=== PATIENT | female | born 1975 | race Caucasian/White ===

== ENCOUNTER 2020-01-21 15:45 | Emergency (ER) | payer SELFPAY ==
[~2020-01-21] VITALS: Ht 172.2 cm; Wt 95.2 kg
[~2020-01-21 15:45] MED LIST: ALBUTEROL; ALPR1T PO; BENZ100C18 PO; CEFP250S5 PO; CEPH500C PO; CLIN-62 PO; FLUC40SU PO; GLIP10TA13 PO; GLMP4T PO; HYDR118S PO; IBP800T PO; LEVO500T69 PO; MECL-124 PO; METF-380 PO; NFMET1000; OMEP20CA12 PO; PHEN-452 PO; PRD20T PO; PREN1TAB39 PO; PS30T PO; RNT150T; SRTR100T PO; TPR25T PO; TRIA16.5 NS
[2020-01-21] MEDS ORDERED: KETOROLAC 30 MG/ML VIAL IVP STA (16:48)
[2020-01-21] MEDS ORDERED: NS IV 1000 ML 1,000 ML IV SCH (16:48)
--- NOTE | 2020-01-21 16:59 | ED EENT ---
History of Present Illness General Stated Complaint: MIGRAINE History of Present Illness Date Seen by Provider: Jan 21, 2020 Time Seen by Provider: 16:35 Initial Comments 44 year old female presents for right frontal headache. Patient states that it's been present for approximately 48 hours. 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 She reports that her study partner did test positive for COVID approximately 2 weeks ago and is off isolation at this time. She reports a slight change in her sense of taste and smell but nothing significant. She has long-standing history of migraines. She has not required any injections for medications for this in the last few years. She did try Tylenol and naproxen with no improvement in her symptoms. She did vomit one time prior to arrival. She is under stress from school and her child committed suicide within the last year. Timing/Duration: abrupt, yesterday Severity: moderate Location: ear (R), ear (L), facial Prearrival Treatment: over the counter meds Associated Symptoms: No change in hearing, No cough, No fever; malaise, nasal congestion/drainage, poor solids intake, sinus infection, sore throat Allergies and Home Medications Allergies Coded Allergies: Penicillins (Verified Adverse Reaction, Mild, YEAST INFECTION, 08/09/11) PATIENT STATED THEY HAD A YEAST INFECTION AFTER USING PCN Home Medications Alprazolam 1 Mg Tablet, 1 TAB PO BID PRN, (Reported) Cefdinir 300 Mg Capsule, 300 MG PO BID Prescribed by: DEYANIRA CACERES on 01/21/201815 Omeprazole 20 Mg Capsule.dr, 20 MG PO DAILY, (Reported) Sertraline Hcl 100 Mg Tablet, 200 MG PO HS, (Reported) Patient Home Medication List Home Medication List Reviewed: Yes Review of Systems Review of Systems Constitutional: no symptoms reported, see HPI; No fever Eyes: See HPI, Photophobia; Denies Vision Changes Ears: See HPI, Pain Nose: see HPI, congestion Mouth: no symptoms reported, see HPI Throat: no symptoms reported, see HPI Respiratory: see HPI, cough; No dyspnea on exertion, No short of breath Cardiovascular: no symptoms reported, see HPI; No chest pain Gastrointestinal: see HPI, nausea, vomiting : No (hysterectomy) Musculoskeletal: no symptoms reported, see HPI All Other Systems Reviewed Negative Unless Noted: Yes Past Nodjcun-Chcngt-Amrroz Hx Past Med/Social Hx: Reviewed Nursing Past Med/Soc Hx Patient Social History Recent Foreign Travel: No Contact w/Someone Who Travel: No Immunizations Up To Date Date of Influenza Vaccine: Dec 03, 2010 Seasonal Allergies Seasonal Allergies: Yes Past Medical History Asthma, Pneumonia SALES PROMOTER History: Tubal Ligation Gastroesophageal Reflux Dysphagia, Chronic Ear Infection Loss of Vision: Denies Hearing Impairment: Denies Anxiety, Depression Physical Exam Vital Signs Vital Signs - First Documented 01/21/20 16:24 Temp 35.6 Pulse 52 Resp 15 B/P (MAP) 153/91 (111) Pulse Ox 98 O2 Delivery Room Air Height, Weight, BMI Height: '" Weight: lbs. oz. kg; BMI Method:Stated General Appearance: WD/WN, mild distress Eyes: bilateral eye normal inspection, bilateral eye PERRL, bilateral eye EOMI Ears: bilateral ear erythema, bilateral ear TM red, bilateral ear TM bulging Nose: normal inspection; No active bleeding, No discharge Mouth/Throat: normal mouth inspection, pharynx normal Neck: non-tender, full range of motion, supple, normal inspection Cardiovascular: normal peripheral pulses, regular rate, rhythm Respiratory: chest non-tender, lungs clear, normal breath sounds Gastrointestinal: normal bowel sounds, non tender, soft Neurologic/Psychiatric: no motor/sensory deficits, alert, normal mood/affect, oriented x 3 Skin: normal color, warm/dry; No rash Progress/Results/Core Measures Results/Orders Lab Results Laboratory Tests Test 01/21/20 16:40 Range/Units Coronavirus 2019 ([facility]) Negative Negative My Orders Orders - DEYANIRA CACERES Covid 19 Inhouse Test (01/21/20 16:29) Ed Iv/Invasive Line Start (01/21/20 16:48) Ns Iv 1000 Ml (Sodium Chloride 0.9%) (01/21/20 16:48) Ketorolac Injection (Toradol Injection) (01/21/20 16:48) Diphenhydramine Injection (Benadryl Inje (01/21/20 17:00) Promethazine Injection (Phenergan Injec (01/21/20 17:00) Tramadol Tablet (Ultram Tablet) (01/21/20 18:15) Medications Given in ED Current Medications Medications Dose Ordered Sig/Augie Route Start Time Stop Time Status Last Admin Dose Admin Diphenhydramine HCl 12.5 mg ONCE ONCE IVP 01/21/20 17:00 01/21/20 17:01 DC 01/21/20 17:13 12.5 MG Promethazine HCl 12.5 mg ONCE ONCE IVP 01/21/20 17:00 01/21/20 17:01 DC 01/21/20 17:24 12.5 MG Tramadol HCl 50 mg ONCE ONCE PO 01/21/20 18:15 01/21/20 18:16 DC 01/21/20 18:17 50 MG Vital Signs/I&O 01/21/20 01/21/20 16:24 18:29 Temp 35.6 35.6 Pulse 52 52 Resp 15 15 B/P (MAP) 153/91 (111) 156/80 (111) Pulse Ox 98 98 O2 Delivery Room Air Room Air Progress Progress Note : Time: 16:35 Progress Note Patient seen and evaluated, will give normal saline 1 L per IV, Toradol 30 mg IV, Benadryl 12.5 mg IV and Phenergan 12.5 mg IV. Encouraged patient to use her eyes, rest and not be using her phone. 1720 patient reports trace improvement in her symptoms. We'll give tramadol 50 mg orally for the headache. She is requesting discharge to home. Will let her IV fluids finished infusing. She is continuing to use her phone, explained that t his will perpetuate her migraine. 1810 discharge instructions and return precautions reviewed with patient. All questions answered. Departure Impression Primary Impression: Migraine Qualified Codes: G43.009 - Migraine without aura, not intractable, without status migrainosus Additional Impression: Otitis externa Qualified Codes: H60.313 - Diffuse otitis externa, bilateral Disposition: 01 HOME, SELF-CARE Condition: Improved Departure-Patient Inst. Decision time for Depature: 18:10 Referrals: BURKE TAN MD (PCP/Family) Primary Care Physician Patient Instructions: Migraines (DC), Outer Ear Infection (DC) Add. Discharge Instructions: Increase water intake, 16 ounces every 2 hours while awake Take Tylenol 650 mg every 6-8 hours and naproxen 500 mg every 12 hours. Take antibiotics as prescribed. Follow-up with your primary care provider if symptoms are not improving or worsen. Return to the emergency department for new, urgent health care needs. Scripts Cefdinir (Cefdinir) 300 Mg Capsule 300 MG PO BID, #14 CAP 0 Refills Prov: DEYANIRA CACERES 01/21/20 DEYANIRA CACERES Jan 21, 2020 16:59
[2020-01-21] MEDS ORDERED: PROMETHAZINE INJ 25 MG/ML (PHENERGAN) AMP IVP ONE (17:00)
[2020-01-21] MEDS ORDERED: diphenhydrAMINE 50 MG/ML INJ (BENADRYL) IVP ONE (17:00)
[2020-01-21] MEDS ORDERED: CEFD300C3 PO (18:16)
[2020-01-21 18:29] VITALS: BP 156/80
== END 2020-01-21 18:29 | disposition home or self-care (01) ==
LOC: EDUNIT# 15:45 → ER 15:48
DX: G43.909 Migraine, unspecified, not intractable, without status migrainosus (principal); H60.93 Unspecified otitis externa, bilateral; K21.9 Gastro-esophageal reflux disease without esophagitis; F32.9 Major depressive disorder, single episode, unspecified; F41.9 Anxiety disorder, unspecified; Z20.828 Contact with and (suspected) exposure to other viral communicable diseases; Z88.0 Allergy status to penicillin
CPT/HCPCS: 99284; U0002; 87635

== ENCOUNTER 2020-12-07 17:53 | Emergency (ER) | payer SELFPAY ==
[~2020-12-07] VITALS: Ht 170 cm; Wt 93.0 kg
[~2020-12-07 17:53] MED LIST changes: +CEFD300C3 PO
[2020-12-07] MEDS ORDERED: PROMETHAZINE INJ 25 MG/ML (PHENERGAN) AMP IM ONE (19:00)
[2020-12-07] MEDS ORDERED: KETOROLAC 30 MG/ML VIAL IM ONE (19:00)
--- NOTE | 2020-12-07 19:01 | ED Headache ---
General Chief Complaint: Head/Cervical Problems Stated Complaint: HEADACHE/WEAKNESS Nursing Triage Note: Pt ambulatory to ED with c/o CHILD. Pt reports she has had a CHILD for three days that she rates 7/10 and has had some nausea today she believes is due to the intensity of her CHILD. Pt reports being under a large amount of stress and believes the CHILD may be related to stress and lack of sleep. Pt reports losing her son to suicide a couple of years ago, losing her this summer, and has been having nightmares. 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 Pt states she has a medical marijuana card and normally uses marijuana to help her sleep, but has not used it in three weeks because she "is afraid to get in trouble at school." Pt states she "hasn't felt right" since she had the COVID vaccine on Nov 23. Source: patient Exam Limitations: no limitations History of Present Illness Date Seen by Provider: Dec 07, 2020 Time Seen by Provider: 18:33 Initial Comments This 45-year-old woman presents to the emergency room with primary complaint of migraine headache. 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 This is also the 2-year anniversary of her son's suicide. Her also this summer. She reports problems with migraine headaches and especially with insomnia. She tends to have nightmares that keep her from sleeping well. In addition to headache she has had dizziness, nausea, and weakness. She tried taking ibuprofen this morning along with 2 Excedrin. She took a tramadol at noon. These efforts did not alleviate her pain. She reports having had COVID-19 in August and of the first of her Covid vaccination injections in November. She reports developing cardiomyopathy after Covid infection in August. Patient normally smokes marijuana nightly to help with her insomnia and nightmares. She is unable to smoke marijuana despite having a marijuana card because she is fearful of failing a drug screen for nursing school. Allergies and Home Medications Allergies Coded Allergies: Penicillins (Verified Adverse Reaction, Mild, YEAST INFECTION, 08/09/11) PATIENT STATED THEY HAD A YEAST INFECTION AFTER USING PCN Patient Home Medication List Home Medication List Reviewed: Yes Alprazolam (Xanax) 1 Mg Tablet, 1 TAB PO BID PRN, (Reported) Entered as Reported by: MONTY KHAN on 08/18/12 0840 Cefdinir (Cefdinir) 300 Mg Capsule, 300 MG PO BID Prescribed by: DEYANIRA CACERES on 01/21/20 1816 Omeprazole (Omeprazole) 20 Mg Capsule.dr, 20 MG PO DAILY, (Reported) Entered as Reported by: MARILOU MTZ on 06/14/12 2215 Sertraline Hcl (Zoloft) 100 Mg Tablet, 200 MG PO HS, (Reported) Entered as Reported by: JENNIFER GODFREY on 10/18/11 2337 Review of Systems Review of Systems Constitutional: see HPI Eyes: No Symptoms Reported Ears, Nose, Mouth, Throat: no symptoms reported Respiratory: no symptoms reported Cardiovascular: see HPI Gastrointestinal: see HPI Genitourinary: no symptoms reported : No Musculoskeletal: no symptoms reported Skin: no symptoms reported Psychiatric/Neurological: See HPI Past Jsumqou-Jhrywa-Ltffsp Hx Patient Social History Tobacco Use?: No Alcohol Use?: Yes Alcohol Frequency: Rarely Seasonal Allergies Seasonal Allergies: Yes Past Medical History Surgeries: Yes (LAP BAND, deviated septum) Tubal Ligation Respiratory: Yes Asthma, Pneumonia Cardiac: Yes Hypertension Neurological: Yes Headaches /Migraines Reproductive Disorders: No OPERATING ROOM NURSE History: Hysterectomy, Tubal Ligation Gastrointestinal: Yes Gastroesophageal Reflux Musculoskeletal: No Endocrine: Yes Diabetes, Non-Insulin dep (Diet controlled) HEENT: Yes Dysphagia, Chronic Ear Infection Loss of Vision: Denies Hearing Impairment: Denies Cancer: No Psychosocial: Yes Anxiety, Depression Integumentary: No Blood Disorders: No Physical Exam Vital Signs Vital Signs - First Documented 12/07/20 18:01 Temp 35.9 Pulse 79 Resp 20 B/P (MAP) 137/85 (102) Pulse Ox 99 O2 Delivery Room Air Capillary Refill : Less Than 3 Seconds Height, Weight, BMI Height: '" Weight: lbs. oz. kg; 32.00 BMI Method:Stated General Appearance: WD/WN, mild distress HEENT: PERRL/EOMI, normal ENT inspection, TMs normal, pharynx normal Neck: normal inspection Cardiovascular: regular rate, rhythm, no edema, no murmur Respiratory: lungs clear, normal breath sounds, no respiratory distress Gastrointestinal: non tender, soft Extremities: normal inspection, no pedal edema Psychiatric: alert, oriented x 3 Motor/Sensory: no motor deficit Skin: normal color, warm/dry Progress/Results/Core Measures Results/Orders My Orders Orders - NORTH BARGER MD Ketorolac Injection (Toradol Injection) (12/07/20 19:00) Promethazine Injection (Phenergan Injec (12/07/20 19:00) Medications Given in ED Current Medications Medications Dose Ordered Sig/Augie Route Start Time Stop Time Status Last Admin Dose Admin Ketorolac Tromethamine 30 mg ONCE ONCE IM 12/07/20 19:00 12/07/20 19:01 DC 12/07/20 19:17 30 MG Promethazine HCl 25 mg ONCE ONCE IM 12/07/20 19:00 12/07/20 19:01 DC 12/07/20 19:18 25 MG Vital Signs/I&O 12/07/20 12/07/20 18:01 19:45 Temp 35.9 36.4 Pulse 79 70 Resp 20 20 B/P (MAP) 137/85 (102) 102/92 Pulse Ox 99 98 O2 Delivery Room Air Blood Pressure Mean: 102 Progress Progress Note : Time: 18:59 Progress Note Patient was offered work-up including blood work as well as IV medications and IV fluids. She preferred to obtain a Toradol and Phenergan IM injection as she normally does at urgent care. I also offered her a prescription of Seroquel or other sleep aid to help with her racing thoughts and nightmares at bedtime. She also declines this offer stating she prefers to discuss it with her primary care provider first. The injections were ordered with plan to discharge as long as she improves. Patient is comfortable with this plan and is anxious for discharge home after her treatment. Departure Impression Primary Impression: Migraine headache Qualified Codes: G43.909 - Migraine, unspecified, not intractable, without status migrainosus Additional Impressions: Insomnia Qualified Codes: G47.00 - Insomnia, unspecified Nightmares Psychosocial stressors Disposition: HOME, SELF-CARE Condition: Improved Departure-Patient Inst. Referrals: NO,LOCAL PHYSICIAN (PCP/Family) Primary Care Physician Patient Instructions: Insomnia, Migraines (DC) Add. Discharge Instructions: Drink plenty of clear liquids to stay well-hydrated. Rest in a quiet, calm, dark environment for the remainder of tonight. You may take ibuprofen, Tylenol, and Zofran to help with your migraine symptoms. Follow-up with your primary care provider to discuss treatment of insomnia, nightmares, and migraines. Call with questions or concerns. Return to the ER if you have worsening symptoms. All discharge instructions reviewed with patient and/or family. Voiced understanding. NORTH BARGER MD Dec 07, 2020 19:01
[2020-12-07 19:45] VITALS: BP 102/92
== END 2020-12-07 19:58 | disposition home or self-care (01) ==
LOC: EDUNIT# 17:53 → ER 17:55
DX: G43.909 Migraine, unspecified, not intractable, without status migrainosus (principal); G47.00 Insomnia, unspecified; F51.5 Nightmare disorder; J45.909 Unspecified asthma, uncomplicated; I10 Essential (primary) hypertension; E11.9 Type 2 diabetes mellitus without complications; F41.9 Anxiety disorder, unspecified; F32.9 Major depressive disorder, single episode, unspecified; K21.9 Gastro-esophageal reflux disease without esophagitis; Z65.8 Other specified problems related to psychosocial circumstances; Z86.16 Personal history of COVID-19; Z79.899 Other long term (current) drug therapy
CPT/HCPCS: 99284

== ENCOUNTER 2022-01-16 15:25 | Emergency (ER) | payer MEDICAID ==
[~2022-01-16] VITALS: Ht 170 cm; Wt 99.7 kg
[2022-01-16] MEDS ORDERED: PROMETHAZINE INJ 25 MG/ML (PHENERGAN) AMP IVP ONE ×2 (16:00→17:30)
[2022-01-16] MEDS ORDERED: ANTACID SUSP 30 ML UDC (MYLANTA) PO ONE (16:00)
[2022-01-16] MEDS ORDERED: LACTATED RINGERS 1,000 ML IV SCH (16:00)
[2022-01-16] MEDS ORDERED: LIDOCAINE 2% VISCOUS 15 ML UDC PO ONE (16:00)
[2022-01-16 16:04] LABS: BASOPHILS % (AUTO) 1 % (0-10); EOSINOPHILS # (AUTO) 0.2 10^3/uL (0.0-0.3); EOSINOPHILS % (AUTO) 3 % (0-10); HEMATOCRIT 42 % (35-52); HEMOGLOBIN 14.1 g/dL (11.5-16.0); LYMPHOCYTES # (AUTO) 2.2 10^3/uL (1.0-4.0); LYMPHOCYTES % (AUTO) 40 % (12-44); MEAN CORPUSCULAR HEMOGLOBIN 31 pg (25-34); MEAN CORPUSCULAR HGB CONC 34 g/dL (32-36); MEAN CORPUSCULAR VOLUME 92 fL (80-99); MEAN PLATELET VOLUME 8.3 fL (9.0-12.2); MONOCYTES # (AUTO) 0.5 10^3/uL (0.0-1.0); MONOCYTES % (AUTO) 8 % (0-12); NEUTROPHILS # (AUTO) 2.7 10^3/uL (1.8-7.8); NEUTROPHILS % (AUTO) 48 % (42-75); PLATELET COUNT 277 10^3/uL (130-400); WHITE BLOOD COUNT 5.5 10^3/uL (4.3-11.0)
--- NOTE | 2022-01-16 16:13 | ED General ---
General Chief Complaint: General Problems/Pain Stated Complaint: VOMITING BLOOD,WEAKNESS,LOW PULSE Nursing Triage Note: PT PRESENTS TO ED VIA POV FROM HOME WITH COMPLAINTS OF DARK BLOOD EMESIS DURRING THE DAY. PT DENIES PAIN BUT REPORTS NAUSEA. PT STATES SHE ASPIRATES AT NIGHT IN HER SLEEP FOR 12 YEARS. Source of Information: Patient Exam Limitations: No Limitations History of Present Illness Date Seen by Provider: Jan 16, 2022 Time Seen by Provider: 16:10 Initial Comments to ER with reports of palpitations, dark bloody emesis during the day and bright red at night x4 days. She has nausea vomiting. Denies any abdominal pain. She had a lap [place] [address] LONDON. She decided recently that she would like to have this removed but has not yet called Dr. LONDON for follow-up. She also has palpitations. She reports generalized weakness that is severe. She states that she has terrible acid reflux and aspirates every night for 12 years. 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 States that she lost both her and her son to suicides and has a lot of anxiety and PTSD issues with that. Smokes THC nightly to help prevent the nightmares. Timing/Duration: 4-5 Days Severity: Moderate Associated Systoms: Nausea/Vomiting, Weakness Allergies and Home Medications Allergies Coded Allergies: morphine (Verified Allergy, Unknown, 01/16/22) Penicillins (Verified Adverse Reaction, Mild, YEAST INFECTION, 08/09/11) PATIENT STATED THEY HAD A YEAST INFECTION AFTER USING PCN Patient Home Medication List Home Medication List Reviewed: Yes Alprazolam (Xanax) 1 Mg Tablet, 1 TAB PO BID PRN, (Reported) Entered as Reported by: MONTY KHAN on 08/18/12 0840 Cefdinir (Cefdinir) 300 Mg Capsule, 300 MG PO BID Prescribed by: DEYANIRA CACERES on 01/21/20 1816 Omeprazole (Omeprazole) 20 Mg Capsule.dr, 20 MG PO DAILY, (Reported) Entered as Reported by: MARILOU MTZ on 06/14/12 2215 Ondansetron (Ondansetron Odt) 8 Mg Tab.rapdis, 8 MG SL Q6H PRN for NAUSEA/VOMITING Prescribed by: GINGER BETTS on 01/16/22 1725 Sertraline Hcl (Zoloft) 100 Mg Tablet, 200 MG PO HS, (Reported) Entered as Reported by: JENNIFER GODFREY on 10/18/11 3738 Review of Systems Review of Systems Constitutional: see HPI EENTM: see HPI Respiratory: no symptoms reported Cardiovascular: no symptoms reported Gastrointestinal: No melena; nausea, vomiting Genitourinary: no symptoms reported Musculoskeletal: no symptoms reported Skin: no symptoms reported Psychiatric/Neurological: No Symptoms Reported Hematologic/Lymphatic: No Symptoms Reported Past Jjlledd-Ajfolx-Gpvpsx Hx Patient Social History Tobacco Use?: Yes Tobacco type used: Cigarettes Smoking Status: Current Everyday Smoker Substance use?: Yes Substance type: Marijuana Alcohol Use?: No Pt feels they are or have been: No Immunizations Up To Date First/Initial COVID19 Vaccinat: Nov 23, 2020 Second COVID19 Vaccination Alex: Nov 23, 2020 Third COVID19 Vaccination Date: Nov 23, 2020 Seasonal Allergies Seasonal Allergies: Yes Past Medical History Surgery/Hospitalization HX: SX: -LAP BAND, HYSTERECTOMY, TUMMY TUCK, SHOULDER SX, TONSILS, LOLY PMH: COVID CARDIOMYOPATHY, ANXIETY/PTSD, GERD, HLD Surgeries: Yes (LAP BAND, deviated septum) Tubal Ligation Respiratory: Yes Asthma, Pneumonia Cardiac: Yes Hypertension Neurological: Yes Headaches /Migraines 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 oz. kg; 34.00 BMI Method:Stated General Appearance: No Apparent Distress, WD/WN, Other (No distress hemodynamically stable) Eyes: Bilateral Eye Normal Inspection, Bilateral Eye PERRL, Bilateral Eye EOMI HEENT: PERRL/EOMI, TMs Normal Neck: Full Range of Motion, Normal Inspection Respiratory: Normal Breath Sounds, No Accessory Muscle Use, No Respiratory Distress Cardiovascular: Regular Rate, Rhythm, Normal Peripheral Pulses Gastrointestinal: Normal Bowel Sounds, Non Tender, Soft Extremity: Normal Capillary Refill, Normal Inspection Neurologic/Psychiatric: Alert, Oriented x3 Skin: Normal Color, Warm/Dry Progress/Results/Core Measures Suspected Sepsis SIRS Temperature: Pulse: 66 Respiratory Rate: 18 Laboratory Tests 01/16/22 15:50: White Blood Count 5.5 Blood Pressure 148 /98 Mean: 115 Laboratory Tests 01/16/22 15:50: Creatinine 0.88, INR Comment 1.0, Platelet Count 277, Total Bilirubin 0.4 Results/Orders Lab Results Laboratory Tests Test 01/16/22 15:50 Range/Units White Blood Count 5.5 4.3-11.0 10^3/uL Red Blood Count 4.58 3.80-5.11 10^6/uL Hemoglobin 14.1 11.5-16.0 g/dL Hematocrit 42 35-52 % Mean Corpuscular Volume 92 80-99 fL Mean Corpuscular Hemoglobin 31 25-34 pg Mean Corpuscular Hemoglobin Concent 34 32-36 g/dL Red Cell Distribution Width 12.4 10.0-14.5 % Platelet Count 277 130-400 10^3/uL Mean Platelet Volume 8.3 L 9.0-12.2 fL Immature Granulocyte % (Auto) 0 % Neutrophils (%) (Auto) 48 42-75 % Lymphocytes (%) (Auto) 40 12-44 % Monocytes (%) (Auto) 8 0-12 % Eosinophils (%) (Auto) 3 0-10 % Basophils (%) (Auto) 1 0-10 % Neutrophils # (Auto) 2.7 1.8-7.8 10^3/uL Lymphocytes # (Auto) 2.2 1.0-4.0 10^3/uL Monocytes # (Auto) 0.5 0.0-1.0 10^3/uL Eosinophils # (Auto) 0.2 0.0-0.3 10^3/uL Basophils # (Auto) 0.0 0.0-0.1 10^3/uL Immature Granulocyte # (Auto) 0.0 0.0-0.1 10^3/uL Prothrombin Time 13.2 12.2-14.7 SEC INR Comment 1.0 0.8-1.4 Sodium Level 136 135-145 MMOL/L Potassium Level 3.8 3.6-5.0 MMOL/L Chloride Level 101 98-107 MMOL/L Carbon Dioxide Level 24 21-32 MMOL/L Anion Gap 11 5-14 MMOL/L Blood Urea Nitrogen 9 7-18 MG/DL Creatinine 0.88 0.60-1.30 MG/DL Estimat Glomerular Filtration Rate 83 BUN/Creatinine Ratio 10 Glucose Level 104 70-105 MG/DL Calcium Level 9.2 8.5-10.1 MG/DL Corrected Calcium 9.3 8.5-10.1 MG/DL Magnesium Level 1.8 1.6-2.4 MG/DL Total Bilirubin 0.4 0.1-1.0 MG/DL Aspartate Amino Transf (AST/SGOT) 18 5-34 U/L Alanine Aminotransferase (ALT/SGPT) 15 0-55 U/L Alkaline Phosphatase 61 40-136 U/L Total Protein 7.0 6.4-8.2 GM/DL Albumin 3.9 3.2-4.5 GM/DL Thyroid Stimulating Hormone (TSH) 2.62 0.35-4.94 UIU/ML Free Thyroxine 0.91 0.70-1.48 NG/DL My Orders Orders - GINGER BETTS APRN Cbc With Automated Diff (01/16/22 15:54) Comprehensive Metabolic Panel (01/16/22 15:54) Protime With Inr (01/16/22 15:54) Ed Iv/Invasive Line Start (01/16/22 15:54) Ekg Tracing (01/16/22 15:54) Thyroid Stimulating Hormone (01/16/22 15:54) Free T4 (Free Thyroxine) (01/16/22 15:54) Magnesium (01/16/22 15:54) Lactated Ringers (Lr 1000 Ml Iv Solution (01/16/22 16:00) Promethazine Injection (Phenergan Injec (01/16/22 16:00) Antacid Suspension (Mylanta Suspension (01/16/22 16:00) Lidocaine 2% Viscous 15 Ml (Xylocaine Vi (01/16/22 16:00) Ct Abdomen/Pelvis Wo (01/16/22 16:52) Acetaminophen Tablet (Tylenol Tablet) (01/16/22 17:00) Ondansetron Injection (Zofran Injectio (01/16/22 17:30) Promethazine Injection (Phenergan Injec (01/16/22 17:30) Medications Given in ED Current Medications Medications Dose Ordered Sig/Augie Route Start Time Stop Time Status Last Admin Dose Admin Acetaminophen 1,000 mg ONCE ONCE PO 01/16/22 17:00 01/16/22 17:01 DC 01/16/22 17:04 1,000 MG Al Hydrox/Mg Hydrox/Simethicone 30 ml ONCE ONCE PO 01/16/22 16:00 01/16/22 16:01 DC 01/16/22 16:06 30 ML Lidocaine HCl 15 ml ONCE ONCE PO 01/16/22 16:00 01/16/22 16:01 DC 01/16/22 16:06 15 ML Ondansetron HCl 8 mg ONCE ONCE IVP 01/16/22 17:30 01/16/22 17:31 DC 01/16/22 17:30 8 MG Promethazine HCl 12.5 mg ONCE ONCE IVP 01/16/22 16:00 01/16/22 16:01 DC 01/16/22 16:06 12.5 MG Promethazine HCl 12.5 mg ONCE ONCE IVP 01/16/22 17:30 01/16/22 17:31 DC 01/16/22 17:30 12.5 MG Vital Signs/I&O 01/16/22 15:54 Temp 36.0 Pulse 66 Resp 18 B/P (MAP) 148/98 (115) Pulse Ox 96 Capillary Refill : Less Than 3 Seconds Blood Pressure Mean: 115 Departure Communication (Admissions) 1747-discussed with Dr. LONDON, I used a 20-gauge 1 inch Barrientos needle to access the Lap-Band port in the right abdominal wall and aspirated 5 mL of saline from the port. NAME: GLORY MOLINA MED REC#: [id number] PT STATUS: REG ER : 1975 PHYSICIAN: GINGER BETTS APRN ADMIT DATE: 01/16/22/ER Draft Date of Exam:01/16/22 CT ABDOMEN/PELVIS WO PROCEDURE: CT abdomen and pelvis without contrast. TECHNIQUE: Multiple contiguous axial images were obtained through the abdomen and pelvis without the use of intravenous contrast. Auto Exposure Controls were utilized during the CT exam to meet ALARA standards for radiation dose reduction. INDICATION: Bloody emesis, nausea. COMPARISON: I have no priors. FINDINGS: There is a gastric Lap-Band present. There is material distending the lumen of the distal thoracic esophagus above the level of the Lap-Band. It is somewhat hyperdense and could reflect intraluminal blood, mass, or retained ingested material. No lower thoracic pneumomediastinum, pleural fluid, or pneumothorax. No paraesophageal stranding or evidence for its perforation. There is a large left adnexal cyst, presumed ovarian, of 5.4 x 4.1 cm. The right adnexa is unremarkable. Urinary bladder is unremarkable. There is a normal appendix. There is no bowel obstruction. Liver, spleen, adrenals, and pancreas are unremarkable. There is no opaque kidney stone. There is no hydroureteronephrosis. The aorta is nonaneurysmal. IMPRESSION: 1. Indwelling gastric Lap-Band with lower thoracic esophageal distention and complex intraluminal debris, blood could not be excluded but no findings of viscus perforation. 2. Left adnexal cyst. Follow-up with pelvic ultrasound suggested, that could be performed on a nonemergent outpatient basis. 3. No acute-appearing infradiaphragmatic abnormality. Dictated on workstation # [id number] Dict: 01/16/221715 Trans: 01/16/22 1724 [id number] Interpreted by: JUAN RUEDA Electronically signed by: Impression Primary Impression: History of hematemesis Additional Impression: LAP-BAND surgery status Disposition: 01 HOME, SELF-CARE Condition: Stable Departure-Patient Inst. Decision time for Depature: 16:53 Referrals: RENNY LONDON MD, ERIC S MD (PCP) Primary Care Physician Patient Instructions: NO INSTRUCTIONS GIVEN Add. Discharge Instructions: 1. Clear liquids only for the next 24 hours, nausea medication as needed return to ER for any worsening or other concerns. I made an appointment for you with Dr. LONDON next Sunday01/25/2022 at 4 PM. All discharge instructions reviewed with patient and/or family. Voiced understanding. Scripts Ondansetron (Ondansetron Odt) 8 Mg Tab.rapdis 8 MG SL Q6H PRN for NAUSEA/VOMITING, #10 TAB Prov: GINGER BETTS APRN 01/16/22 Copy Copies To 1: RENNY LONDON MD, PETER J [employer]IA[employer] Jan 16, 2022 16:13
[2022-01-16 16:17] LABS: ALBUMIN 3.9 GM/DL (3.2-4.5); POTASSIUM 3.8 MMOL/L (3.6-5.0)
[2022-01-16 16:18] LABS: CALCIUM 9.2 MG/DL (8.5-10.1); PROTHROMBIN TIME PATIENT 13.2 SEC (12.2-14.7)
[2022-01-16 16:21] LABS: BILIRUBIN,TOTAL 0.4 MG/DL (0.1-1.0)
[2022-01-16 16:23] LABS: CREATININE SERUM 0.88 MG/DL (0.60-1.30)
[2022-01-16 16:26] LABS: MAGNESIUM 1.8 MG/DL (1.6-2.4)
[2022-01-16 16:47] LABS: FREE T4 (FREE THYROXINE) 0.91 NG/DL (0.70-1.48)
[2022-01-16] MEDS ORDERED: ACETAMINOPHEN 500 MG TAB (TYLENOL) PO ONE (17:00)
[2022-01-16] MEDS ORDERED: ONDA8TAB13 SL (17:25)
--- NOTE | 2022-01-16 17:25 | Diagnostic Imaging Report ---
PROCEDURE: CT abdomen and pelvis without contrast. TECHNIQUE: Multiple contiguous axial images were obtained through the abdomen and pelvis without the use of intravenous contrast. Auto Exposure Controls were utilized during the CT exam to meet ALARA standards for radiation dose reduction. INDICATION: Bloody emesis, nausea. COMPARISON: I have no priors. FINDINGS: There is a gastric Lap-Band present. There is material distending the lumen of the distal thoracic esophagus above the level of the Lap-Band. It is somewhat hyperdense and could reflect intraluminal blood, mass, or retained ingested material. No lower thoracic pneumomediastinum, pleural fluid, or pneumothorax. No paraesophageal stranding or evidence for its perforation. There is a large left adnexal cyst, presumed ovarian, of 5.4 x 4.1 cm. The right adnexa is unremarkable. Urinary bladder is unremarkable. There is a normal appendix. There is no bowel obstruction. Liver, spleen, adrenals, and pancreas are unremarkable. There is no opaque kidney stone. There is no hydroureteronephrosis. The aorta is nonaneurysmal. IMPRESSION: 1. Indwelling gastric Lap-Band with lower thoracic esophageal distention and complex intraluminal debris, blood could not be excluded but no findings of viscus perforation. 2. Left adnexal cyst. Follow-up with pelvic ultrasound suggested, that could be performed on a nonemergent outpatient basis. 3. No acute-appearing infradiaphragmatic abnormality. Dictated by: Dictated on workstation # [id number]
[2022-01-16] MEDS ORDERED: ONDANSETRON 4 MG/2 ML (SDV) Z0FRAN IVP ONE (17:30)
[2022-01-16 18:14] VITALS: BP 141/93
== END 2022-01-16 18:10 | disposition home or self-care (01) ==
LOC: EDUNIT# 15:25 → ER 15:28
DX: K92.0 Hematemesis (principal); F17.210 Nicotine dependence, cigarettes, uncomplicated; Z98.84 Bariatric surgery status; Z86.16 Personal history of COVID-19
CPT/HCPCS: 36415; 74176; 80053; 83735; 84439; 84443; 85025; 85610; 93005